=== PATIENT | male | born 1965 | race Caucasian/White ===

== ENCOUNTER 2022-08-07 13:31 | Emergency (ER) | payer MEDICAID ==
[~2022-08-07] VITALS: Ht 175.3 cm; Wt 90.7 kg
[2022-08-07 13:50] VITALS: BP 127/82
--- NOTE | 2022-08-07 13:52 | NUR ---
PT AMBULATED TO [facility]. COVID AND FLU SWAB COLLECTED
[2022-08-07] MEDS ORDERED: ALBUTEROL SULFATE/IPRATROPIU 3 ML SOL IH ONE ×2 (14:30→15:45)
[2022-08-07] MEDS ORDERED: methylPREDNISolone SS 125 MG/2 ML VIAL IVP ONE (14:30)
[2022-08-07] MEDS ORDERED: methylPREDNISolone SS 125 MG/2 ML VIAL IM ONE (14:40)
--- NOTE | 2022-08-07 14:56 | NUR ---
Pt ambulated to bed 07 with steady/even gait. Placed onto electronic device monitor.
--- NOTE | 2022-08-07 15:00 | NUR ---
57 y/o M BIB self from home c/o productive cough, sinus congestion x 1.5 weeks. Patient states "long-COVID" issues and reports symptoms have remain constant. Patient reports SOB with exertion. Denies chest pain, abdominal pain, fever, chills, n/v/d, headache, sick household members. Lung leon wheezes throughout. monitoring analyst in place. SpO2 97% r/a. Bed locked in lowest position, side rails x 1. PMH: hyperthyroidism, asthma, long-covid, sciatica Meds: flomax, albuterol, methadone, gabapentin NKDA Sx: Denies
--- NOTE | 2022-08-07 15:09 | NUR ---
Pt transported to [facility] via .
--- NOTE | 2022-08-07 15:15 | NUR ---
Pt returned from RAD.
--- NOTE | 2022-08-07 15:27 | NUR ---
RT at bedside for neb tx
--- NOTE | 2022-08-07 15:43 | NUR ---
JONY Zelaya reevaluating patient at bedside
[2022-08-07] MEDS ORDERED: ALBU0.0912 INH (16:17)
[2022-08-07] MEDS ORDERED: BENZ200C4 PO (16:17)
[2022-08-07] MEDS ORDERED: PRED20TA5 PO (16:17)
[2022-08-07 16:26] VITALS: BP 127/76
--- NOTE | 2022-08-07 16:26 | NUR ---
ATTEMPTING TO D/C PT, SPO2 DROPPED TO 90%. JONY GAMBLE/DR MONTALVO AT BEDSIDE
--- NOTE | 2022-08-07 16:35 | NUR ---
Patient discharged with v/s stable. Written and verbal after care instructions given and explained for URI, Bronchospasm, Asthma Adult, Asthma Action Plan (Adult). Patient alert, oriented and verbalized understanding of instructions. Ambulatory with steady gait. All questions addressed prior to discharge. ID band removed. Patient advised to follow up with PMD. Rx of Bezonatate, Prednisone, Albuterol inhaler given. Patient educated on indication of medication including possible reaction and side effects. Opportunity to ask questions provided and answered. Work note given to patient.
== END 2022-08-07 16:35 | disposition home or self-care (01) ==
LOC: MED 13:31
DX: J45.901 Unspecified asthma with (acute) exacerbation (principal); Z20.822 Contact with and (suspected) exposure to COVID-19; J06.9 Acute upper respiratory infection, unspecified; E07.9 Disorder of thyroid, unspecified; Z79.899 Other long term (current) drug therapy
CPT/HCPCS: 71046; 87426; 87804; 94640; 99284; J2930

== ENCOUNTER 2022-08-15 08:58 | Emergency (ER) | payer BC, MEDICAID ==
[~2022-08-15] VITALS: Ht 172.7 cm; Wt 88.0 kg
[~2022-08-15 08:58] MED LIST: ALBU0.0912 INH; BENZ200C4 PO; PRED20TA5 PO
[2022-08-15 09:08] VITALS: BP 140/75
--- NOTE | 2022-08-15 09:19 | NUR ---
bibs sob x 1 week. spo2 86 % on ra in triage. speaks f/c sentences. denies cough, n,v,d,fever, chills, chest pain. resp even and nonlabored. tachypneic @ 24. spo2 91 % ra. was here last week for same complaint given rx. denies recent sick contact exposure. aao x4. smoker
[2022-08-15] MEDS ORDERED: ALBUTEROL 0.083% 2.5 MG/3 ML NEBU INH ONE (09:35)
[2022-08-15] MEDS ORDERED: IPRATROPIUM 0.02% 0.5 MG/2.5 ML NEBU INH ONE (09:35)
--- NOTE | 2022-08-15 09:35 | NUR ---
called rt for breathing tx
[2022-08-15 10:00] LABS: HEMATOCRIT 39.5 % (36-52); HEMOGLOBIN 13.5 g/dL (12.0-18.0); MEAN CORPUSCULAR HEMOGLOBIN 30 pg (27-31); MEAN CORPUSCULAR HGB CONC 34 g/dL (33-37); MEAN CORPUSCULAR VOLUME 86.3 fL (80-94); PLATELET COUNT (AUTO) 319 K/uL (140-450); RED BLOOD CELL COUNT(AUTO) 4.58 MIL/uL (4.20-6.10); RED CELL DISTRIBUTION WIDTH 12.8 % (11.6-13.7)
--- NOTE | 2022-08-15 10:13 | NUR ---
reports feeling better after breathing tx. pt on o2 @ 4 lpm via nc. spo2 97 %. pending results
[2022-08-15 10:20] LABS: WHITE BLOOD COUNT (AUTO) 25.1 K/uL (4.8-10.8)
[2022-08-15 10:38] LABS: ALBUMIN 3.7 g/dL (3.4-5.0); ANION GAP 14.7 (8-16); ASPARTATE AMINOTRANSFERASE 46 U/L (15-37); CARBON DIOXIDE 25.9 mmol/L (21-32); CHLORIDE 105 mmol/L (98-107); CREATININE 0.8 mg/dL (0.6-1.3); GFR ARICAN-AMERICAN 129 mL/min (>90); GLUCOSE 129 mg/dL (74-106); POTASSIUM 3.6 mmol/L (3.5-5.1); SODIUM SERUM 142 mmol/L (136-145); TOTAL BILIRUBIN 0.6 mg/dL (0.0-1.0); UREA NITROGEN, BLOOD 18 mg/dL (7-18)
[2022-08-15] MEDS ORDERED: DOXY-487 PO (11:00)
[2022-08-15 11:07] LABS: LYMPHOCYTES % (MANUAL) 3 % (20-46); MONOCYTES % (MANUAL) 3 % (5-12)
--- NOTE | 2022-08-15 11:21 | NUR ---
Patient does not wish to proceed with medical care recommended by dr. perez. Patient given information related to possible complications, up to and including , which could occur as a result of leaving hospital at this time. Patient verbalizes understanding of risks involved leaving against medical advice. Patient has signed AMA form. awaiting rx by dr. perez. aao x4. resp even and nonlabored. spo2 90 % ra. ambulatory with steady gait. other vss. all belongings taken
[2022-08-15 11:24] VITALS: BP 128/76
== END 2022-08-15 11:21 | disposition left against medical advice (07) ==
LOC: MED 08:58
DX: J18.9 Pneumonia, unspecified organism (principal); R09.02 Hypoxemia; R06.00 Dyspnea, unspecified; F17.210 Nicotine dependence, cigarettes, uncomplicated
CPT/HCPCS: 36415; 71045; 80053; 84484; 85025; 93005; 94640; 99285; J7613; J7644

== ENCOUNTER 2024-02-23 18:30 | Emergency (ER) | payer BC, MEDICAID ==
[~2024-02-23] VITALS: Ht 175.3 cm; Wt 99.8 kg
[~2024-02-23 18:30] MED LIST changes: +DOXY-487 PO
[2024-02-23 19:27] VITALS: BP 123/82; PULSE 69; RESP 16; TEMP 97.8; O2SAT 98
[2024-02-24] MEDS ORDERED: PRED20TA5 PO (08:43)
== END 2024-02-23 22:09 | disposition left against medical advice (07) ==
LOC: MED 18:30
DX: R05.9 Cough, unspecified (principal); R07.89 Other chest pain; Z53.21 Procedure and treatment not carried out due to patient leaving prior to being seen by health care provider
CPT/HCPCS: 71046; 93005

== ENCOUNTER 2024-02-24 08:17 | Emergency (ER) | payer MEDICAID ==
[~2024-02-24] VITALS: Ht 176.5 cm; Wt 95.3 kg
[2024-02-24 08:21] VITALS: BP 139/86; PULSE 76; RESP 18; TEMP 97.3; O2SAT 100
[2024-02-24] MEDS ORDERED: PRED20TA5 PO (08:43)
[2024-02-24 08:50] VITALS: BP 139/86; PULSE 76; RESP 18; TEMP 97.3; O2SAT 100
== END 2024-02-24 08:50 | disposition home or self-care (01) ==
LOC: MED 08:17
DX: R05.9 Cough, unspecified (principal); R07.89 Other chest pain; R03.0 Elevated blood-pressure reading, without diagnosis of hypertension; J45.909 Unspecified asthma, uncomplicated; E05.90 Thyrotoxicosis, unspecified without thyrotoxic crisis or storm; Z79.899 Other long term (current) drug therapy
CPT/HCPCS: 99283

== ENCOUNTER 2024-02-27 20:02 | Emergency (ER) | payer MEDICAID ==
[~2024-02-27] VITALS: Ht 175.3 cm; Wt 95.3 kg
[2024-02-27 20:02] VITALS: BP 158/77; PULSE 78; RESP 16; TEMP 97.4; O2SAT 96
[2024-02-27] MEDS ORDERED: methylPREDNISolone SS 125 MG in WATER STERILE 2 ML IV ONE (20:45)
[2024-02-27] MEDS ORDERED: cefTRIAXone 1,000 MG VIAL ONE (20:59)
[2024-02-27 21:06] LABS: HEMATOCRIT 45.5 % (36-52); HEMOGLOBIN 15.3 g/dL (12.0-18.0); MEAN CORPUSCULAR HEMOGLOBIN 30 pg (27-31); MEAN CORPUSCULAR HGB CONC 34 g/dL (33-37); MEAN CORPUSCULAR VOLUME 87.8 fL (80-94); MONOCYTES # (AUTO) 1.2 K/uL (0.8-1.0); MONOCYTES % (AUTO) 6.5 % (1.7-9.3); NEUTROPHILS % (AUTO) 88.2 % (42.2-75.2); PLATELET COUNT (AUTO) 307 K/uL (140-450); RED BLOOD CELL COUNT(AUTO) 5.18 MIL/uL (4.20-6.10); RED CELL DISTRIBUTION WIDTH 13.5 % (11.6-13.7); WHITE BLOOD COUNT (AUTO) 18.1 K/uL (4.8-10.8)
[2024-02-27] MEDS: NACL 0.9% 1,000 ML IV ONE (21:06)
[2024-02-27 21:07] LABS: LYMPHOCYTES % (AUTO) 5.3 % (20.5-51.1)
[2024-02-27] MEDS ORDERED: methylPREDNISolone SS 125 MG/2 ML VIAL ONE (21:08)
[2024-02-27] MEDS ORDERED: WATER STERILE 10 ML MC ONE (21:08)
[2024-02-27] MEDS: WATER STERILE IV ONE (21:13)
[2024-02-27] MEDS: METHYLPREDNISOLONE SS IV ONE (21:13)
[2024-02-27] MEDS: ALBUTEROL 0.083% 2.5 MG/3 ML NEBU INH ONE (21:20)
[2024-02-27 21:21] VITALS: PULSE 75; RESP 16; O2SAT 98
[2024-02-27 21:23] LABS: ALBUMIN 3.7 g/dL (3.4-5.0); BILIRUBIN,DIRECT 0.1 mg/dL (0.0-0.3); TOTAL BILIRUBIN 0.4 mg/dL (0.0-1.0); TOTAL PROTEIN, SERUM 7.7 g/dL (6.4-8.2)
[2024-02-27 21:28] LABS: LACTIC ACID 1.7 mmol/L (0.4-2.0)
[2024-02-27 21:31] LABS: ANION GAP 11.8 (8-16); CALCIUM 9.1 mg/dL (8.5-10.1); CARBON DIOXIDE 28.3 mmol/L (21-32); CREATININE 1.3 mg/dL (0.6-1.3); POTASSIUM 4.1 mmol/L (3.5-5.1)
[2024-02-27] MEDS ORDERED: AZITHROMYCIN 500 MG INJ VIAL IV ONE (21:34)
[2024-02-27] MEDS: AZITHROMYCIN 500 MG in DEXTROSE 5% 250 ML IV ONE (21:54)
[2024-02-27] MEDS: KETOROLAC 30 MG/ML VIAL IVP ONE (21:59)
[2024-02-27] MEDS: MORPHINE SULFATE 4 MG/ML SYR IVP ONE (22:10)
[2024-02-27] MEDS ORDERED: CLAR500T99 PO (22:26)
[2024-02-27] MEDS ORDERED: PRED20TA5 PO (22:26)
[2024-02-27] MEDS ORDERED: ALBU0.0912 INH (22:26)
[2024-02-27 22:33] VITALS: BP 140/76; PULSE 70; RESP 16; TEMP 97.7; O2SAT 98
== END 2024-02-27 22:33 | disposition home or self-care (01) ==
LOC: MED 20:02
DX: J44.1 Chronic obstructive pulmonary disease with (acute) exacerbation (principal); E05.90 Thyrotoxicosis, unspecified without thyrotoxic crisis or storm; F17.200 Nicotine dependence, unspecified, uncomplicated; Z71.6 Tobacco abuse counseling; Z79.899 Other long term (current) drug therapy
CPT/HCPCS: 36415; 71045; 80048; 80076; 83605; 83880; 85025; 87040; 94640; 96365; 96367; 96375; 99284; J0456; J0696; J1885; J2270; J2919; J7030; J7613; Q0092

== ENCOUNTER 2024-03-03 15:44 | Emergency (ER) | payer MEDICAID ==
[~2024-03-03] VITALS: Ht 176.5 cm; Wt 96.3 kg
[~2024-03-03 15:44] MED LIST changes: +CLAR500T99 PO
[2024-03-03 15:57] VITALS: BP 127/85; PULSE 73; RESP 18; TEMP 97.8; O2SAT 98
[2024-03-03] MEDS: ALBUTEROL SULFATE/IPRATROPIU 3 ML SOL IH ONE (16:34)
[2024-03-03 16:36] VITALS: PULSE 59; RESP 18; O2SAT 94
[2024-03-03] MEDS ORDERED: OXYM20SP1 NS (17:29)
[2024-03-03 17:36] VITALS: BP 127/78; PULSE 62; RESP 18; TEMP 97.8; O2SAT 96
== END 2024-03-03 17:36 | disposition home or self-care (01) ==
LOC: MED 15:44
DX: J98.01 Acute bronchospasm (principal); R09.82 Postnasal drip; E05.90 Thyrotoxicosis, unspecified without thyrotoxic crisis or storm; Z72.0 Tobacco use; Z71.6 Tobacco abuse counseling; Z79.2 Long term (current) use of antibiotics; Z79.899 Other long term (current) drug therapy
CPT/HCPCS: 93005; 94640; 99283

== ENCOUNTER 2024-06-09 16:31 | Emergency (ER) | payer MEDICAID ==
[~2024-06-09] VITALS: Ht 172.7 cm; Wt 94.5 kg
[~2024-06-09 16:31] MED LIST changes: +OXYM20SP1 NS
[2024-06-09 16:46] VITALS: BP 152/55; PULSE 70; RESP 16; TEMP 98.4; O2SAT 100
[2024-06-09] MEDS: ONDANSETRON 4 MG TAB PO ONE (17:48)
[2024-06-09] MEDS: MORPHINE SULFATE 4 MG/ML SYR IM ONE (17:49)
[2024-06-09] MEDS: LIDOCAINE 4% 1 EA PATCH TP ONE (17:53)
[2024-06-09] MEDS ORDERED: METH-1681 PO (19:17)
[2024-06-09] MEDS ORDERED: LID5T TP (19:17)
[2024-06-09 19:21] VITALS: BP 128/78; PULSE 80; RESP 16; TEMP 98.4; O2SAT 97
== END 2024-06-09 19:20 | disposition home or self-care (01) ==
LOC: MED 16:31
DX: M54.50 Low back pain, unspecified (principal); R20.0 Anesthesia of skin; R20.2 Paresthesia of skin; M53.3 Sacrococcygeal disorders, not elsewhere classified; J44.9 Chronic obstructive pulmonary disease, unspecified; E05.90 Thyrotoxicosis, unspecified without thyrotoxic crisis or storm; F17.210 Nicotine dependence, cigarettes, uncomplicated; Z79.899 Other long term (current) drug therapy
CPT/HCPCS: 72110; 72220; 96372; 99284; J2270; Q0162